=== PATIENT | male | born 1960 | race Asian ===

== ENCOUNTER 2019-09-06 13:20 | Outpatient (CLI) | payer OTHER, SELFPAY ==
--- NOTE | ~2019-09-06 | XR_ITS ---
EXAMINATION: XR shoulder LT min 2V DATE: 09/06/2019 13:45 INDICATION: Left shoulder pain. TECHNIQUE: 4 views of left shoulder were obtained. COMPARISON: None. FINDINGS: Bone alignment is normal. No fracture. Glenohumeral joint is normal. There is mild acromioc lavicular joint osteoarthritis. IMPRESSION: 1. Mild left acromioclavicular joint osteoarthritis. Reviewed, dictated and finalized at location A. INE MANAGER
== END 2019-09-06 13:21 | disposition home or self-care (01) ==
LOC: ANHIMG 13:29
PROVIDERS: PCP Emergency Medicine; Visit Provider Emergency Medicine
DX: M19.012 Primary osteoarthritis, left shoulder (principal)
CPT/HCPCS: 73030

== ENCOUNTER 2020-07-09 17:00 | Outpatient (RCR) | payer OTHER, SELFPAY ==
--- NOTE | 2020-06-14 18:05 | PTOPEVAL ---
PHYSICAL THERAPY EVALUATION AND PLAN OF CARE Thank you for referring Srinivasa Villarreal to [facility].? The patient is scheduled to be seen for therapy? 2x/week for 3 weeks. Please review, sign, date and return this plan of care [place]. I agree with and certify that the following plan of care is medically necessary. Referring Physician Date Attending Provider: Gemini Tafoya, SATURATOR OPERATOR-BC Evaluation Diagnosis low back pain, radiculopathy Subjective Information low back pain along the lower Query Text:As Reported By Patient/ spine and then symptoms that Family go down the left leg. This has been going on for several years and he did do therapy several years ago without significant change, but symptoms are worsening again. States he cannot sleep on the left side. He does sleep well on the right side. Sitting is the worst to illicit symptoms, but standing and walking with cause zingers. Self Report Pain Assessment Left Spine, Lumbar Reported Pain Level 5 Pain Description Burning,Sharp Radicular Pain Location left thigh Pain Frequency Chronic,Intermittent Lowest Pain Intensity 4 Greatest Pain Intensity 8 Pain Score Pain Score 5: Self Report Interventions Used Interventions Used By Clinicians Exercise Other Alleviating Interventions stretching Cervical and Lumbar ROM Lumbar ROM Lumbar Flexion (0-90) 50 Query Text:Active in Degrees Lumbar Flexion Active Mid [place] Query Text:Hands to: Lumbar Extension (0-40) 10 Query Text:Active in Degrees Lateral Rotation Right (0-45) 25 Query Text:Active in Degrees Lateral Rotation Left (0-45) 40 Query Text:Active in Degrees Lumbar Comments symptoms are lower lumbar spine with flexion and left rotation - symptoms improved after session Lower Extremity Muscle Strength Testing Hip Strength Right Hip Flexion Strength 5 Normal Hip Extension Strength 4 Good Hip Abduction Strength 4+ Good + Left Hip Flexion Strength 4+ Good + Hip Extension Strength 3+ Fair + Hip Abduction Strength 4- Good - Knee Strength Right Knee Flexion Strength 5 Normal Knee Extension Strength 5 Normal Left Knee Flexion Strength 4+ Good + Knee Extension Strength 4 Good Mus
--- NOTE | 2020-07-09 17:59 | PTOPEVAL ---
PHYSICAL THERAPY DISCHARGE NOTE Thank you for referring Srinivasa Villarreal to [facility].? Please review, sign, date and return this plan of care [place]. I agree with and certify that the following plan of care is medically necessary. Referring Physician Date Attending Provider: Gemini Tafoya, MOVIE ACTOR-BC Discharge Diagnosis low back pain, radiculopathy Subjective Information reports no significant change Query Text:As Reported By Patient/ in symptoms other than a very Family small amount. States that he feels ok just standing briefly, but if he stands for prolonged period or sits down he will feel significant symptoms in left lower back and radiculopathy to left lateral thigh just below gluteal fold Self Report Pain Assessment Left Spine, Lumbar Reported Pain Level 5 Pain Description Burning,Sharp Pain Frequency Chronic,Intermittent Pain Score Pain Score 5: Self Report Interventions Used Interventions Used By Clinicians Exercise Other Alleviating Interventions stretching Cervical and Lumbar ROM Lumbar ROM Lumbar Flexion (0-90) 60 Query Text:Active in Degrees Lumbar Flexion Active Mid [place] Query Text:Hands to: Lumbar Extension (0-40) 13 Query Text:Active in Degrees Lateral Rotation Right (0-45) 35 Query Text:Active in Degrees Lateral Rotation Left (0-45) 35 Query Text:Active in Degrees Lumbar Comments symptoms with flexion; reports feeling stiff after working and standing all day Lower Extremity Muscle Strength Testing Hip Strength Right Hip Flexion Strength 5 Normal Hip Extension Strength 5 Normal Hip Abduction Strength 5 Normal Left Hip Flexion Strength 5 Normal Hip Extension Strength 4+ Good + Hip Abduction Strength 5 Normal Knee Strength Right Knee Flexion Strength 5 Normal Knee Extension Strength 5 Normal Left Knee Flexion Strength 5 Normal Knee Extension Strength 5 Normal Muscle Length Testing Muscle Length Testing Piriformis w/Hip Flexion >90 Degrees (R) WFL,(L) WFL Left Hamstring Length -25 Query Text:(90 - 90 Position) Right Hamstring Length -25 Query Text:(90 - 90 Position) Posture Posture Supine Position Lumbar Spine Posture Increased Lordosis Pelvis Posture Neutral Additional Posture Comments discussed postu
== END 2020-08-28 14:21 | disposition home or self-care (01) ==
LOC: ANHPT 17:00
PROVIDERS: PCP Emergency Medicine; Visit Provider Nurse Practitioner Family
DX: M54.5 Low back pain (principal); M54.16 Radiculopathy, lumbar region
CPT/HCPCS: 97012; 97110; 97140; 97161

== ENCOUNTER 2020-10-06 15:42 | Emergency (ER) | payer OTHER, SELFPAY ==
--- NOTE | 2020-10-06 15:50 | ED.DIZZY ---
HPI - Dizziness General Chief Complaint: Dizziness Stated Complaint: DIZZINESS Time Seen by Provider: 10/06/20 15:56 Source: patient Mode of arrival: ambulatory Limitations: no limitations History of Present Illness HPI Narrative: Srinivasa Villarreal is a 59 yo male with a PMH of prior benign positional vertigo, comes to [facility] with complaints of feeling capsular in his ears and dizziness that started about 3 to 4 days ago today. He has been treated for middle ear issue and dizziness in the past with meclizine Related Data Home Medications Medication Instructions Recorded Confirmed No Home Medications 10/06/20 10/06/20 Allergies Allergy/AdvReac Type Severity Reaction Status Date / Time Penicillins Allergy Unknown SISTER HAD Verified 10/06/20 15:50 A REACTION Review of Systems Review of Systems: Narrative: CONSTITUTIONAL: Denies fever, chills, sweats. EYES: Denies visual changes, redness, discharge. ENT: Denies rhinorrhea, congestion, sore throat, otalgia. CARDIOVASCULAR: Denies chest pain, palpitations, edema. RESPIRATORY: Denies dyspnea, wheezing, cough GASTROINTESTINAL: Denies abdominal pain, nausea, vomiting, diarrhea. GENITOURINARY: Denies dysuria, hematuria, abnormal discharge SKIN: Denies rash or itching. NEUROLOGIC: Denies numbness, or focal weakness. Has dizziness PSYCHIATRIC: Denies anxiety or depression. [facility] Past Medical History Medical History Benign positional vertigo Thalassemia Family History Family History Other Hypertension Social History Social History (Updated 10/06/20 @ 16:15 by Mary Ann Mims CNP) Smoking status: Never smoker Substance use: never Comments At time of signature, I agree with nursing past medical, surgical, social and family history. There is no relevant family history pertinent to the presenting complaint. Exam Narrative: Exam Narrative: GENERAL: This is a well-nourished, well-developed patient, in mild distress. HEAD: normocephalic, atraumatic. EYES: [place] Sclera clear/white. Vision is grossly intact. EARS: External ears normal, auditory canals clear and without drainage, TMs normal without perforation. Hearing grossly intact. NOSE: External nose normal without nasal discharge, nares without redness, no rhinorrhea. THROAT: Mucous membranes moist, NECK: Neck supple, CARDIOVASCULAR: Regular rate and rhythm without murmurs, gallops, or rubs. RESPIRATORY: Clear to auscultation. Breath sounds equal bilaterally. No wheezes, rales, or rhonchi. GASTROINTESTINAL: Abdomen soft, SKIN: warm, intact with no suspicious lesions or rash, good texture and turgor. NEURO: awake, alert, and oriented to person, place and time. There were no obvious focal neurologic abnormalities. Steady gait.Crania nerves grossly intact EXTREMITIES: Normal range of motion. BACK: Nontender without deformity Course Course Emergency Course: Came to [facility] with dizziness started today, states feels has water in ears sometimes when he kneels down to pray EKG done, vital signs done, discussed with patient will start on Flonase Zyrtec and meclizine. Symptoms continue he should go to the PCP and get blood work done. Discussed results of EKG Vital Signs Vital signs: Vital Signs Temperature 98.8 F 10/06/20 15:57 Pulse Rate 76 10/06/20 15:57 Respiratory Rate 16 10/06/20 15:57 Blood Pressure 98/80 L 10/06/20 15:57 Pulse Oximetry 100 10/06/20 15:57 Temperature 98.8 F 10/06/20 15:57 Pulse Rate 76 10/06/20 16:21 Respiratory Rate 16 10/06/20 15:57 Blood Pressure 131/78 10/06/20 16:21 Pulse Oximetry 100 10/06/20 15:57 Procedures Other Procedure Procedure 1: Other Procedure: EKG rate is 75 no QT prolongation no axis deviation normal sinus rhythm and peaked T waves in V3 and V4 MDM - Dizziness Differential Diagnosis Differen
[2020-10-06 15:57] VITALS: BP 98/80; PULSE 76; RESP 16; TEMP 37.1; O2SAT 100
--- NOTE | 2020-10-06 16:06 | ECG_ITS ---
Measurements Intervals [place] Rate: 75 P: 77 MS: 126 QRS: 66 QRSD: 97 T: 53 QT: 382 QTc: 428 Interpretive Statements SINUS RHYTHM INCOMPLETE RIGHT BUNDLE BRANCH BLOCK BORDERLINE ECG Electronically Signed On 10-07-2020 16:24:59 CDT by Kyle Denny D.O.
[2020-10-06 16:19] VITALS: BP 125/72; PULSE 76
[2020-10-06 16:20] VITALS: BP 116/72; PULSE 87
[2020-10-06 16:21] VITALS: BP 131/78; PULSE 76
== END 2020-10-06 16:32 | disposition home or self-care (01) ==
PROVIDERS: Emergency Provider Nurse Practitioner; PCP Emergency Medicine
DX: H81.10 Benign paroxysmal vertigo, unspecified ear (principal)
CPT/HCPCS: 93005; 99213; G0463

== ENCOUNTER 2020-11-06 14:42 | Outpatient (CLI) | payer OTHER, SELFPAY | END 2020-11-06 14:43 | disposition home or self-care (01) | LOC: ANHAUDIO 14:43 | PROVIDERS: PCP Emergency Medicine; Visit Provider Emergency Medicine | DX: H90.3 Sensorineural hearing loss, bilateral (principal); R42 Dizziness and giddiness | CPT/HCPCS: 92557; 92567 ==

== ENCOUNTER 2021-10-09 16:38 | Outpatient (CLI) | payer OTHER, SELFPAY ==
--- NOTE | ~2021-10-09 | XR_ITS ---
EXAMINATION: XR lumbar spine 2-3V DATE: 10/09/2021 17:03 INDICATION: Other spondylosis, lumbar region. TECHNIQUE: 3 views of lumbar spine were obtained. COMPARISON: Lumbar spine radiographs 01/27/2017, MRI 04/22/2018 FINDINGS: Bone alignment is normal. Vertebral body heights are normal. Intervertebral disc heights ar e normal. There is multilevel mild facet joint osteoarthritis. There is severe right facet joint oste oarthritis at L5-S1. IMPRESSION: 1. Lumbar facet joint osteoarthritis. Reviewed, dictated and finalized at location A.
== END 2021-10-09 16:39 | disposition home or self-care (01) ==
LOC: ANHIMG 16:46
PROVIDERS: PCP Emergency Medicine; Visit Provider Emergency Medicine
DX: M47.896 Other spondylosis, lumbar region (principal); M51.36 Other intervertebral disc degeneration, lumbar region
CPT/HCPCS: 72100

== ENCOUNTER → 2022-03-20 08:03 | Outpatient (CLI) | payer OTHER, SELFPAY ==
--- NOTE | ~2022-03-20 | US_ITS ---
EXAMINATION: US venous doppler [facility] DATE: 03/20/2022 08:55 INDICATION: Left lower limb pain TECHNIQUE: Garvin scale images without and with compression and Doppler images of the left lower extrem ity veins were obtained. COMPARISON: None FINDINGS: The left common femoral vein, profunda femoral vein, femoral vein, popliteal vein, peroneal trunk, posterior tibial veins, and greater saphenous vein are patent. IMPRESSION: 1. Patent left lower extremity veins. No evidence of deep venous thrombosis. Reviewed, dictated and finalized at location B.
--- NOTE | ~2022-03-20 | US_ITS ---
EXAMINATION: US scrotum doppler DATE: 03/20/2022 08:55 INDICATION: Left testicular pain since epididymal cyst removal TECHNIQUE: Testicular sonogram utilizing grayscale and Doppler COMPARISON: 05/03/2014 FINDINGS: The right testis measures 4.2 x 1.9 x 3.3 cm. The left testis measures 4.4 x 1.7 x 3.5 cm a nd contains a 3 mm cyst. There is normal vascular flow to both testes. The right epididymis contains a 7 mm cyst. The left epididymis contains a 7 mm cyst. There is a small left hydrocele. IMPRESSION: 1. Small bilateral epididymal cysts. Reviewed, dictated and finalized at location B.
== END ==
LOC: EXPGOSH 08:06 → EXPGOSHRAD 08:52
PROVIDERS: PCP Emergency Medicine; Visit Provider Emergency Medicine
DX: R52 Pain, unspecified (principal); N50.3 Cyst of epididymis
CPT/HCPCS: 76870; 93971; 93976

== ENCOUNTER 2022-05-14 10:16 | Outpatient (CLI) | payer OTHER, SELFPAY ==
--- NOTE | 2022-05-14 11:15 | NEURO_ITS ---
Impression: # Complains of pain in left lower extremity. # Normal nerve conduction study. # Normal needle/EMG exam. # Clinical correlation recommended. Motor Nerve Conduction Lower Extremities Peroneal Nerve Conduction Velocity (m/sec) Terminal Latency (msec) Response Voltage(mV) Popliteal space-Ankle Ankle Extensor Dig Brevis Popliteal space Ankle Right Left 40 5.1 2 2 Tibial Nerve Conduction Velocity (m/sec) Terminal Latency (msec) Response Voltage(mV) Popliteal space-Ankle Ankle-Extensor Dig Brevis Popliteal space Ankle Right Left 45 4.8 4 5 F-waves Peroneal Nerve (ms) Tibial Nerve (ms) Right Left 59.1 58.3 Sensory Nerve Conduction Lower Extremities Sural Nerve Stimulation Terminal Latency (msec) Ankle Response Voltage (uV) Ankle Response Velocity (m/sec) Right Left 3.9 23 41 Superficial Peroneal Nerve Stimulation Terminal Latency (msec) Ankle Response Voltage (uV) Ankle Response Velocity (m/sec) Right Left 3.2 40 50 Left Right Muscles Examined Fibrillation Fasciculation Scarcity Voltage Duration Left Right Left Right Left Right Left Right Left Right X Ant Tibialis X Gastroc X Fibularis Long X Flex Dig Long X Ext Dig Brev Abd Hallucis Quadriceps Paraspinals MTDD
== END 2022-05-14 10:17 | disposition home or self-care (01) ==
LOC: ANHNEURO 10:17
PROVIDERS: PCP Emergency Medicine; Visit Provider Emergency Medicine
DX: G57.12 Meralgia paresthetica, left lower limb (principal)
CPT/HCPCS: 95886; 95908

== ENCOUNTER 2023-06-19 08:39 | Outpatient (CLI) | payer OTHER, SELFPAY ==
--- NOTE | 2023-06-19 08:42 | EST_ITS ---
Patient Info Name: Srinivasa Villarreal Age: 62 years : 1960 Gender: Male Ht: 71 in Wt: 145 lbs BSA: 1.81 m2 HR: 73 bpm BP: 147 / 84 mmHg Heart Rhythm: Sinus Rhythm Exam Date: 06/19/2023 8:49 AM Exam Location: Echo Lab Patient Status: Outpatient Admit Date: 06/19/2023 Staff Ordering Physician: Kyle Euceda DO Data Network Architect: Telma Brito RDCS Attending Provider: DR. EUCEDA Referring Physician: Eduin LOPEZ; Exercise Technologist: Telma Brito RDCS Exercise Physician: Kyle Euceda DO Exam Type: CA stress echo Study Info Indications R07.9 - Chest pain, unspecified Treadmill exercise stress echocardiogram is performed. Summary 1. 1. Negative Logan exercise stress test for ischemic ST changes by ECG criteria. 2. 2. Good functional capacity, achieving 10 METs of workload. 3. 3. Baseline hypertension. 4. 4. Appropriate HR response to exercise. 5. 5. Appropriate HR recovery at 1 minute post exercise. 6. 6. Negative stress echocardiogram for ischemia by wall motion analysis. 7. 7. Patient informed of the above results. Stress Echo Findings Left Ventricle Appropriate increase in LV endocardial thickening with systole. Appropriate augmentation of contractility with systole. No wall motion abnormality. Left Ventricle Normal LV systolic function, no wall motion abnormality. Protocol: Logan Stress ECG Details Stage: REST Duration (min): 0 min : 45 sec Speed (mph): 0.0 Grade (%): 0 HR (bpm): 72 SBP (mmHg): 147 DBP (mmHg): 84 METS: --- Stage: REST Duration (min): 6 min : 57 sec Speed (mph): 0.0 Grade (%): 0 HR (bpm): 74 SBP (mmHg): 147 DBP (mmHg): 84 METS: --- Stage: STAGE 1 Duration (min): 1 min : 0 sec Speed (mph): 1.7 Grade (%): 10 HR (bpm): 101 SBP (mmHg): 147 DBP (mmHg): 84 METS: --- Stage: STAGE 1 Duration (min): 2 min : 0 sec Speed (mph): 1.7 Grade (%): 10 HR (bpm): 114 SBP (mmHg): 147 DBP (mmHg): 84 METS: --- Stage: STAGE 1 Duration (min): 3 min : 0 sec Speed (mph): 1.7 Grade (%): 10 HR (bpm): 115 SBP (mmHg): 181 DBP (mmHg): 79 METS: --- Stage: STAGE 2 Duration (min): 1 min : 0 sec Speed (mph): 2.5 Grade (%): 12 HR (bpm): 124 SBP (mmHg): 181 DBP (mmHg): 79 METS: --- Stage: STAGE 2 Duration (min): 2 min : 0 sec Speed (mph): 2.5 Grade (%): 12 HR (bpm): 125 SBP (mmHg): 182 DBP (mmHg): 75 METS: --- Stage: STAGE 2 Duration (min): 3 min : 0 sec Speed (mph): 2.5 Grade (%): 12 HR (bpm): 124 SBP (mmHg): 182 DBP (mmHg): 75 METS: --- Stage: STAGE 3 Duration (min): 1 min : 0 sec Speed (mph): 3.4 Grade (%): 14 HR (bpm): 140 SBP (mmHg): 188 DBP (mmHg): 80 METS: --- Stage: STAGE 3 Duration (min): 2 min : 0 sec Speed (mph): 3.4 Grade (%): 14 HR (bpm): 143 SBP (mmHg): 188 DBP (mmHg): 80 METS: --- Stage: STAGE 3 Duration (min): 2 min : 2 sec Speed (mph): 0.0 Grade (%): 0 HR (bpm): 144 SBP (mmHg): 188 DBP (mmHg): 80 METS:
== END 2023-06-19 08:40 | disposition home or self-care (01) ==
LOC: ANHCARD 08:41
PROVIDERS: PCP Emergency Medicine; Visit Provider Internal Medicine Cardiovascular Disease
DX: R07.9 Chest pain, unspecified (principal)
CPT/HCPCS: 93351

== ENCOUNTER 2023-07-15 15:30 | Outpatient (RCR) | payer OTHER, SELFPAY ==
--- NOTE | 2023-06-17 16:44 | OPREHPOC ---
Outpatient Therapy Plan of Care This is a Multidisciplinary Plan of Care that may contain components documented by all disciplines (PT, OT, and ST.) PT Problem 1 PT Problem #1 Knowledge Deficit PT Goal 1 Goal Pt to be IND with issued HEP Target Visit 4 PT Problem 2 PT Problem #2 Pain PT Goal 1 Goal Pt to report L hip pain no greater than 3/10 in the last week Target Visit 4 PT Goal 2 Goal Pt to report 75% improvement in overall symptoms Target Visit 4 PT Problem 3 PT Problem #3 Impaired Strength PT Goal 1 Goal Pt to report equal sensation with resisted hamstring curl Target Visit 4 PT Problem 4 PT Problem #4 Pain PT Goal 1 Goal Pt to be able to sit for 30 mins without an increase in pain Target Visit 4
--- NOTE | 2023-06-17 16:44 | PTOPEVAL1 ---
Assessment and note entered by Chuyita Chaidez, PT, DPT Evaluation Information Assessment Status Evaluation Diagnosis L side sciatic pain Onset chronic Subjective Information Pt states he has L sided hip pain that goes down to his knee. He reports his pain is worse when he is sleeping or sitting. He states when he is standing and walking he has little to no pain. He states he has had this pain for 20 years and has gone through multiple rounds of therapy and multiple different providers to try to diagnosis his pain. Pt initially reports his pain as a 11/10 . He states he has noticed some muscle atrophy in his L leg compared to the R. He states he stands most of the day. Reported Pain Level Pain Score 7: Self Report Assessment PT Clinical Summary Pt presents to therapy today for his initial evaluation with a L sided sciatica. Today he demonstrates equal LE ROM and strength ravi but reports altered sensation with some resisted motions on the L. He notes tenderness to palpation at his L ischial tuberosity and his pain increased incrementally with prolonged sitting. Skilled therapy services are indicated to treat a mechanics cause of his pain, to improve pain reports, and to return to PLOF. Plan of Care Interventions Electrical Stimulation,Gait Training,Hot Pack/Cold Pack,Manual Therapy,Neuro Re-education PT Services Indicated Yes Treatment Frequency and 1x/wk for 4 visits Duration These treatments will address the objective and functional deficits as defined above. The patient will be advanced safely and appropriately in order for the patient to progress towards his/her prior level of function. Additional exercises will be introduced and as well as a comprehensive home exercise program upon discharge, if needed, ?to ensure carryover of functional gains achieved in the clinic. This treatment plan has been reviewed and agreement upon by the patient.
--- NOTE | 2023-07-15 16:14 | PTOPDC ---
Assessment and note entered by Chuyita Chaidez, PT, DPT Evaluation Information Assessment Status discharge Diagnosis L side sciatic pain Onset chronic Subjective Information Pt states his pain in about the same as when he started therapy, he states the stretching helps a little bit but it is only momentary. Pt states he continues to have no pain in standing, but increases as soon as he sits down. Pt states his pain increases to a 6-7/10 if he is sitting longer than 30 mins, he states this still feels like a deep bruise. Reported Pain Level Pain Score 4: Self Report Assessment PT Clinical Summary Pt presents to therapy today for his progress report following 5 visits of skilled therapy. Today he demonstrates neutral LE alignment in supine. He reports no measurable improvements in his pain with day to day activities. He reports adjusting his posture does help to ease his pain but only temporarily. He has made no progress towards his therapy goals and would like to be discharged at this time to return to his orthopedic doctor. He will be discharged per his request.
== END 2023-07-16 08:12 | disposition home or self-care (01) ==
LOC: ANHGOSHPT 15:30
PROVIDERS: PCP Emergency Medicine; Visit Provider Emergency Medicine
DX: M54.42 Lumbago with sciatica, left side (principal)
CPT/HCPCS: 97110; 97140; 97161; 97530

== ENCOUNTER 2023-09-04 08:51 | Outpatient (CLI) | payer OTHER, SELFPAY ==
--- NOTE | ~2023-09-04 | MR_ITS ---
MRI of the lumbar spine Clinical History: Back pain, left sciatica Technique: Axial T2-weighted images, and sagittal T1-weighted, T2-weighted, and T2 fat-sat images wer e acquired. COMPARISON: 04/22/2018 Findings: There is no fracture or subluxation of the lumbar spine. Vertebral bodies maintain normal h eight and alignment. No bone marrow signal abnormality seen. At L1-L2, there is no significant disc bulge or herniation. There is mild facet arthropathy. No centr al canal stenosis or neural foraminal narrowing. At L2-L3, there is no significant disc bulge or herniation. There is moderate facet arthropathy. No c entral canal stenosis or neural foraminal narrowing. At L3-L4, there is mild disc bulge with annular fissure. There is moderate facet arthropathy. No cent ral canal stenosis or definite neural foraminal narrowing. At L4-L5, there is mild disc bulge and moderate facet arthropathy. No central canal stenosis. Neural foramina are preserved. At L5-S1, there is minimal disc bulge with advanced facet arthropathy. No central canal stenosis or n eural foraminal narrowing. Paravertebral soft tissues are unremarkable. Impression: Mild degenerative spondylosis, as above. Reviewed, dictated and finalized at location . E GATE ASSEMBLER Impression: Mild degenerative spondylosis, as above.
== END 2023-09-04 08:52 | disposition home or self-care (01) ==
PROVIDERS: PCP Emergency Medicine; Visit Provider Emergency Medicine
DX: M54.42 Lumbago with sciatica, left side (principal); M47.896 Other spondylosis, lumbar region
CPT/HCPCS: 72148

== ENCOUNTER 2023-09-20 18:21 | Emergency (ER) | payer OTHER, SELFPAY ==
--- NOTE | ~2023-09-20 | XR_ITS ---
EXAMINATION: XR chest 2V DATE: 09/20/2023 19:40 INDICATION: Cough. TECHNIQUE: Frontal and lateral views of the chest were obtained. COMPARISON: Chest 2 views 10/04/2016 FINDINGS: There is no pneumonia, pleural effusion, or pneumothorax. The heart size is normal. IMPRESSION: 1. No acute cardiopulmonary disease. Reviewed, dictated and finalized at location E.
[2023-09-20 18:22] VITALS: BP 138/71; PULSE 96; RESP 16; TEMP 36.6; O2SAT 96
[2023-09-20 19:14] LABS: Influenza A QL RT-PCR Positive (Negative); Influenza B QL RT-PCR Negative (Negative); SARS-CoV-2 RNA PCR Negative (Negative)
[2023-09-20 19:33] VITALS: O2SAT 96
--- NOTE | 2023-09-20 19:37 | PC.NURSE ---
Patient taken to xray via w/c at this time.
[2023-09-20 19:54] VITALS: BP 136/85; PULSE 82; RESP 17; TEMP 36.8; O2SAT 98
--- NOTE | 2023-09-20 19:56 | ED.GENADULT ---
HPI - General Adult General Chief complaint: Upper Respiratory Infection Stated complaint: URI Time Seen by Provider: 09/20/23 19:12 History of Present Illness HPI narrative: Patient is 62-year-old gentleman who presents emergency department with chief complaint of body aches fever and generalized malaise. Patient reports he has had symptoms for about a week and reports he seen his primary care provider who started him on Zithromax and steroid. Patient states that he has continued to have fevers sometimes up to 102 the patient states that he has been taking Tylenol and ibuprofen without relief. Related Data Allergies Allergy/AdvReac Type Severity Reaction Status Date / Time Penicillins Allergy Unknown SISTER HAD Verified 09/20/23 19:32 A REACTION Review of Systems Review of Systems: A 10 system review of systems was completed on the patient and is negative except for what is stated in the HPI. Nursing and ancillary documentation was reviewed. [facility] Past Medical History Medical History Benign positional vertigo Thalassemia Family History Family History Other Hypertension Social History Social History Smoking status: Never smoker Substance use: never Exam Narrative: GENERAL: Well-appearing, well-nourished, and in no acute distress. HEAD: Normocephalic, atraumatic. EYES: PERRLA and EOMI. ENT: Nares clear, no rhinorrhea or epistaxis. Mucous membranes moist. NECK: Supple. CHEST: Clear to auscultation. No respiratory distress. HEART: Regular rate and rhythm. No murmur heard. Normal peripheral pulses. ABDOMEN: Soft, nontender, nondistended, normal active bowel sounds. EXTREMITIES: Normal range of motion. No edema. SKIN: Warm, dry, no rash. NEURO: No focal deficits. Alert and oriented x3. PSYCH: Normal mood and affect. Course Vital Signs Vital signs: Vital Signs Temperature 36.6 C 09/20/23 18:22 Pulse Rate 96 09/20/23 18:22 Respiratory Rate 16 09/20/23 18:22 Blood Pressure 138/71 09/20/23 18:22 Pulse Oximetry 96 09/20/23 18:22 Oxygen Delivery Room Air 09/20/23 18:22 Temperature 36.8 C 09/20/23 19:54 Pulse Rate 82 09/20/23 19:54 Respiratory Rate 17 09/20/23 19:54 Blood Pressure 136/85 09/20/23 19:54 Pulse Oximetry 98 09/20/23 19:54 Oxygen Delivery Room Air 09/20/23 19:33 Medical Decision Making MDM Narrative Medical decision making narrative: Differential diagnosis includes RSV, influenza, COVID, pneumonia, viral illness, upper respiratory infection Viral swab was obtained which showed positive for influenza A Chest x-ray showed no focal infiltrate Unfortunate the patient is a week status post symptoms onset and is not indicated for Tamiflu at this point. The patient will be discharged home instructed symptomatic care Vital Signs Vital Signs: Vital Signs Temperature 36.6 C 09/20/23 18:22 Pulse Rate 96 09/20/23 18:22 Respiratory Rate 16 09/20/23 18:22 Blood Pressure 138/71 09/20/23 18:22 Pulse Oximetry 96 09/20/23 18:22 Oxygen Delivery Room Air 09/20/23 18:22 Temperature 36.8 C 09/20/23 19:54 Pulse Rate 82 09/20/23 19:54 Respiratory Rate 17 09/20/23 19:54 Blood Pressure 136/85 09/20/23 19:54 Pulse Oximetry 98 09/20/23 19:54 Oxygen Delivery Room Air 09/20/23 19:33 Lab Data Labs: Lab Results 09/20/23 Range/Units 18:27 Influenza A (RT-PCR) Positive A (Negative) Influenza B (RT-PCR) Negative (Negative) SARS-CoV-2 RNA (RT-PCR) Negative (Negative) Discharge Plan Discharge Clinical Impression: Influenza A, Upper respiratory infection Patient Disposition: Home, Self-Care Condition: Stable Instructions: Antibiotic Form, Influenza (ED), Upper Respiratory In
== END 2023-09-20 20:08 | disposition home or self-care (01) ==
PROVIDERS: Physician Assistant; Emergency Provider Emergency Medicine; PCP Emergency Medicine
DX: J10.1 Influenza due to other identified influenza virus with other respiratory manifestations (principal); Z20.822 Contact with and (suspected) exposure to COVID-19
CPT/HCPCS: 71046; 87636; 99283

== ENCOUNTER 2024-03-11 14:50 | Outpatient (CLI) | payer OTHER, SELFPAY ==
--- NOTE | ~2024-03-11 | US_ITS ---
EXAMINATION: US scrotum doppler DATE: 03/11/2024 15:21 INDICATION: Left testicular pain TECHNIQUE: Testicular sonogram utilizing grayscale and Doppler COMPARISON: 03/20/2022 FINDINGS: The right testis measures 4.5 x 2.2 x 2.8 cm. The left testis measures 4.6 x 1.8 x 3.0 cm. There is m ild tubular ectasia of the left rete testis. Otherwise symmetric normal grayscale appearance to both testes. There is normal vascular flow to both testes. 8 mm anechoic cyst at the head of the right epi didymis. The right epididymis is otherwise normal with normal vascular flow. The left epididymis is n ormal with normal vascular flow. There is no hydrocele. Mild left varicocele with vessels measuring u p to 2.8 mm which augment with Valsalva. There is mobile fat within a small left inguinal hernia. IMPRESSION: 1. Small fat-containing left inguinal hernia. 2. Mild left varicocele and mild tubular ectasia of the left rete testis. Reviewed, dictated and finalized at location A.
== END 2024-03-11 14:51 | disposition home or self-care (01) ==
LOC: ANHIMG 14:52
PROVIDERS: PCP Emergency Medicine; Visit Provider Emergency Medicine
DX: K40.90 Unilateral inguinal hernia, without obstruction or gangrene, not specified as recurrent (principal); I86.1 Scrotal varices; N50.89 Other specified disorders of the male genital organs; N50.812 Left testicular pain
CPT/HCPCS: 76870; 93976

== ENCOUNTER 2024-04-26 08:43 | Outpatient (CLI) | payer OTHER, SELFPAY ==
[2024-05-18 12:54] VITALS: BMI 19.5
--- NOTE | 2024-05-18 12:54 | WPDHOMESLEEP ---
Sleep Study - Home Unattended Date of Study: 04/26/24 Ordering Provider: Yoseph Newsome MD Interpreting Provider: Jhoana Hardin DO Home Sleep Study Type: Watch PAT Height: 1.8 m Weight: 63.503 kg Body Mass Index: 19.5 Neck Circumference (inches): 14.5 Dunlap: 15 Reason for Sleep Study Snoring, daytime fatigue Sleep History The patient is a 63-year-old male that had a sleep study ordered by his primary care physician for evaluation of sleep apnea. The patient did not complete the sleep history questionnaire. [facility] Past Medical History Medical History Benign positional vertigo Thalassemia Surgical History Surgical History History of removal of cyst left testicle Family History Family History Other Cancer Social History Social History Smoking status: Never smoker Alcohol intake: never Substance use: never Current Housing: Decline to Answer Concerned About Future Housing: Decline to Answer Difficulty Paying Gas/Electric Bills: Decline to Answer Difficulty Paying for Meds: Decline to Answer Currently Unemployed: Decline to Answer Education: Decline to Answer Difficulty w/ Childcare or Family Care: Decline to Answer Medications Home Medications Medication Instructions Recorded Confirmed Type No Home Medications 03/17/24 03/17/24 History Sleep Procedure The sleep study was completed using WatchPAT a technically adequate device with seven channels: peripheral arterial tone, actigraphy, body position, snore, respiratory movement, pulse oximetry, sleep staging, and heart rate. Prior to using the device, the patient received verbal and written instructions for its application and was provided with the help desk phone number for additional telephonic instruction with 24-hour availability of qualified personnel to answer questions. The study was scored using CMS guidelines. Sleep Architecture The total recording time is 5 hrs, 43 min. The total sleep time is 4 hrs, 25 min. Sleep latency is 6 minutes. REM latency is minutes. The patient had 10 episodes of waking. Sleep architecture shows % deep sleep, % light sleep, and (as % Total Sleep Time) showed NREM (Light %; Deep %), and a % stage REM. The patient spent 35.6% of total sleep time in the supine position. Sleep efficiency was 77.26. Respiratory Analysis The overall AHI (pAHI 4%:) is 4.4. The central AHI is 2.2. The AHI was N/A in NREM and N/A in REM sleep. The AHI was N/A in Supine and 3.3 in Non-supine sleep. Percent of Presley Liriano respirations is 0.0. Oximetry Data The oxygen desaturation index (LEIDY 4%:) is 4.4. The mean saturation is 97%, and the lowest saturation is 67%. Time spent with saturation < 88% is 0.1 minutes. Snoring Profile Snoring average intensity is 41 dB. The patient snored above 45 decibels for 20.2 minutes, 7.6% of sleep time. Cardiac Profile The average pulse rate is 65 beats per minutes. The lowest pulse rate is 40 bpm. The highest pulse rate reported is 120 bpm. Suspected Afib total duration is 0:39:47, (h:m:sec). The longest Afibevent duration is 0:06:50. Premature beats occur 0.2 per minute. Assessment and Plan Assessment and Plan (1) Snoring: Code(s): R06.83 - Snoring Status: Acute Assessment and Plan: The patient had an overall AHI 4.4 with desaturation down to 67%. This is not consistent with sleep disordered breathing. There was a significant amount of electrical interference during this study so the data was not as detailed as it normally is. The patient was noted to have nearly 40 minutes of suspected atrial fibrillation during the study. If the patient does not have a history of a cardiac arrhythmia, further evaluation is warranted. Due to the technical difficulty that was experienced during the study, the patient may benefit from an in lab sleep study if there is still clinical suspicion for sleep apnea. Data The data obtained during this sleep study is adequate for interpretation. Certification This sleep study has been reviewed by a board certified sleep medicine physician.
== END 2024-04-27 14:40 | disposition home or self-care (01) ==
LOC: ANHCSM 08:45
PROVIDERS: PCP Emergency Medicine; Visit Provider Emergency Medicine
DX: R06.83 Snoring (principal); G47.33 Obstructive sleep apnea (adult) (pediatric)
CPT/HCPCS: 95800

== ENCOUNTER 2025-05-23 07:57 | Outpatient (CLI) | payer OTHER, SELFPAY ==
--- OUTSIDE RECORDS SUMMARY | 2025-05-23 08:05 | XMS_ITS | Clinical Summary ---
Author Organization [facility] Address [address] [place] [id number] Care Team Providers Care Senior Operator Name Role Phone Yoseph Newsome MD Primary Care Provider Allergies Active Allergy Reactions Criticality Noted Date Comments Penicillin Rash High 12/24/2015 Penicillin G Other (See comments) High 04/22/2012 Penicillins Other (See comments),Rash,Unknown Medium 04/22/2012 PT STATES SISTER HAD RASH UNKNOWN IF HE HAS ISSUES Medications methylPREDNISol one (Medrol, Luis A,) 4 mg DosepackIndicat ions:Anti-infla mmatory Take 1 tablet (4 mg total) by mouth daily Take as directed on package 1 packet 06/12/2022 Active Active Problems Problem Noted Date Diagnosed Date Ischiogluteal bursitis of left side 06/12/2022 Right lateral epicondylitis 06/12/2022 Trochanteric bursitis of left hip 06/12/2022 Surgical History Surgery Date Site/Laterality Comments TESTICLAR CYST EXCISION Medical History Medical History Date Comments No known health problems Family History Medical History Relation Name Comments Diabetes Mother Relation Name Status Comments Mother Social History Tobacco Use Types Packs/Day Years Used Date Smoking Tobacco: Former Smokeless Tobacco: Never Tobacco Cessation:Counseling Given: Not Answered AUDIT-C Answer Date Recorded Q1: How often do you have a drink containing alc ohol? Patient declined 12/04/2020 Q2: How many drinks containi ng alcohol do you have on a typical day when you are drinking? Patient declined 12/04/2020 Q3: How often do you have si x or more drinks on one occasion? 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 Gender Identity Not on file Sexual Orientation Not on file Last Filed Vital Signs Vital Sign Reading Time Taken Comments Blood Pressure 112/80 03/02/2013 9:00 AM CDT Pulse 65 03/02/2013 9:00 AM CDT Temperature 36.7 C (98.1 F) 03/02/2013 9:00 AM CDT Respiratory Rate - - Oxygen Saturation 98% 03/02/2013 9:00 AM CDT Inhaled Oxygen Concentration - - Weight 64.4 kg (142 lb) 06/12/2022 10:26 AM GRAVITY METER OBSERVER Height 180.3 cm (5' 11) 06/12/2022 10:26 AM GRAVITY METER OBSERVER Body Mass Index 19.8 06/12/2022 10:26 AM GRAVITY METER OBSERVER Plan of Treatment Health Maintenance Due Date Last Done Comments Colon Cancer Screening-Colonoscopy 1961 Depression Screening 1961 Hepatitis C Screening 1961 Prostate Cancer Screening-PSA 1961 DTaP/Tdap/Td Vaccine (1 - Tdap) 1972 Hepatitis B Screening 11/08/1979 Regular Well Visit/Exam 18-64 11/08/1979 Zoster Vaccine (1 of 2) 11/08/2011 Influenza Vaccine (#1) 2025 Pneumococcal vaccine <65 Aged Out No longer eligible based on patient's age to complete this topic Insurance [facility] [id number] [place] [address] Care Teams Senior Operator Relationship Specialty Start Date End Date Yoseph Newsome MD [facility] [place] [address] PCP - General Family Medicine 10/24/20
--- OUTSIDE RECORDS SUMMARY | 2025-05-23 08:05 | XMS_ITS | Clinical Summary ---
Author Organization [facility] Address [address] [place] [address] Phone Care Team Providers Care Human Services Manager Name Role Phone Yoseph Newsome Primary Care Provider [phone] Agustin Tsai MD Unavailable [phone] Allergies Active Allergy Reactions Criticality Noted Date Comments Penicillins Other (see Comments),Rash,Unknown High 04/22/2012 Other reaction(s): Other, Other (See comments), Unknown PT STATES SISTER HAD RASH UNKNOWN IF HE HAS ISSUES PT STATES SISTER HAD RASH UNKNOWN IF HE HAS ISSUES PT STATES SISTER HAD RASH UNKNOWN IF HE HAS ISSUES Medications sulindac (CLINORIL) 150 MG Tablet Take 1 Tablet by mouth 2 times daily. 60 Tablet 3 04/15/2024 Active Tadalafil 5 MG Tablet Take 1 Tablet by mouth as needed for Erectile Dysfunction. 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 Gender Identity Not on file Sexual Orientation Not on file Last Filed Vital Signs Vital Sign Reading Time Taken Comments Blood Pressure 144/82 04/15/2024 9:10 AM CDT Pulse 79 04/15/2024 9:10 AM CDT Temperature - - Respiratory Rate 20 04/15/2024 9:10 AM CDT Oxygen Saturation 97% 04/15/2024 9:10 AM CDT Inhaled Oxygen Concentration - - Weight 63.5 kg (140 lb) 04/15/2024 9:10 AM CDT Height 180.3 cm (5' 11) 04/15/2024 9:10 AM CDT Body Mass Index 19.53 04/15/2024 9:10 AM CDT Plan of Treatment Health Maintenance Due Date Last Done Comments Hepatitis C Virus (HCV) Screening 1961 TdaP Immunization 1961 Cologuard 2006 Colonoscopy 2006 Colorectal Cancer Screening 2006 Immunochemical Fecal Occult Blood 2006 Pneumococcal Immunization (5 0+ years) (1 of 1 - PCV) 11/08/2011 Zoster Immunization (1 of 2) 11/08/2011 PSA Discussion 2016 Influenza Immunization (#1) 2025 SARS-COV-2 Immunization ( - 2024- season) 2025 Respiratory Syncytial Virus (RSV) Immunization (Adult) (1 - 1-dose 75+ series) 2036 Hepatitis B Immunization Aged Out No longer eligible based on patient's age to complete this topic Human Papillomavirus (HPV) Immunization Aged Out No longer eligible b ased on patient's age to complete this topic Meningococcal Immunization (ACWY) Aged Out No longer eligible based on patient's age to complete this topic Rotavirus Immunization Aged Out No lo nger eligible based on patient's age to complete this topic Insurance MEDICAID [employer] Care Teams Human Services Manager Relationship Specialty Start Date End Date Yoseph Newsome [address] [place] [address] PCP - General Family Medicine 04/14/24 Agustin Tsai MD [address] [facility] [address] [place] [address] Consulting Physician Urology 04/15/24
--- OUTSIDE RECORDS SUMMARY | 2025-05-23 08:05 | XMS_ITS | Clinical Summary ---
Author Organization [facility] Address [address] [place] [address] Care Team Providers Care Concrete Batching Plant Operator Name Role Phone Yoseph Newsome MD Primary Care Provider [phone] [facility],non[facility] Affiliates and Associated Physician Practices is amultiple site organization consisting of ambulatory clinics and hospital sitesin [place], [place], [place] and [place]. This disclosure is being madepursuant to the Care Everywhere program and may not contain all information available regarding this patient. Last updated 18.[facility] Allergies Active Allergy Reactions Criticality Noted Date Comments Penicillin G Other High 04/22/2012 Medications * Be aware that medications may not be up to date on this document. Alwaysverify current medications with the patient. betamethasone valerate (VALISONE) 0.1 % creamIndication s:Rash of penis Apply to affected area on penis up to twice daily as needed. 30 days supply. 30 g 1 10/18/2021 Active Active Problems Problem Noted Date Diagnosed Date Skin tag 10/18/2021 Rash of penis 11/13/2020 Contact dermatitis 08/10/2012 Family History Medical History Relation Name Comments None Known Brother None Known Father None Known Maternal Aunt None Known Maternal Grandfather None Known Maternal Grandmother None Known Maternal Uncle None Known Mother None Known Other None Known Paternal Aunt None Known Paternal Grandfather None Known Paternal Grandmother None Known Paternal Uncle None Known Sister Asthma Neg Hx CVA Neg Hx Cancer - Breast Neg Hx Cancer - Other Neg Hx Cancer - Skin, Melanoma Neg Hx Cancer - Skin, Non Melanoma Neg Hx Eczema Neg Hx Hemophilia Neg Hx Psoriasis Neg Hx Relation Name Status Comments Brother Father Maternal Aunt Maternal Grandfather Maternal Grandmother Maternal Uncle Mother Other Paternal Aunt Paternal Grandfather Paternal Grandmother Paternal Uncle Sister Social History Tobacco Use Types Packs/Day Years Used Date Smoking Tobacco: Never Smokeless Tobacco: Never Alcohol Use Standard Drinks/Week Comments Never 0 (1 standard drink = 0.6 oz pur e alcohol) AUDIT-C Answer Date Recorded Q1: How often do you have a drink containing alc ohol? Never 05/11/2020 Average Number of Drinks Not on file 020 Frequency of Binge Drinking Not on file 04/14 Sex and Gender Information Value Date Recorded Sex Assigned at Not on file Legal Sex Male 1:48 PM CDT Gender Identity Not on file Sexual Orientation Not on file Last Filed Vital Signs Vital Sign Reading Time Taken Comments Blood Pressure 129/79 01/08/2021 2:58 PM CDT Pulse 72 01/08/2021 2:58 PM CDT Temperature 36.8 C (98.2 F) 05/11/2020 2:53 PM CDT Respiratory Rate 18 05/11/2020 2:53 PM CDT Oxygen Saturation 100% 05/11/2020 2:53 PM CDT Inhaled Oxygen Concentration - - Weight 63.5 kg (140 lb) 01/08/2021 2:58 PM CDT Height 180.3 cm (5' 11) 01/08/2021 2:58 PM CDT Body Mass Index 19.53 01/08/2021 2:58 PM CDT Plan of Treatment Health Maintenance Due Date Last Done Comments COLOGUARD (AGES 45-75) - COL ON CA SCREENING 1961 COLON MONITORING 1961 COLONOSCOPY - COLON CA SCREENING 1961 CT COLONOGRAPHY - COLON CA SCREENING 1961 Colorectal Cancer Screening 1961 FIT - COLON CA SCREENING 1961 FLEX SIG - COLON CA SCREENING 1961 LIPID TESTING 1961 HIV SCREENING 1976 HEPATITIS C SCREENING 11/03/1979 DTAP/TDAP/TD VACCINES (1 - Tdap) 1980 PNEUMOCOCCAL VACCINE 50+ (1 of 1 - PCV) 11/08/2011 ZOSTER VACCINE (1 of 2) 11/08/2011 DEPRESSION SCREENING 07/13/2024 COVID-19 VACCINE (2023-2 5 season) 2025 INFLUENZA VACCINE (#1) 2025 Respiratory Syncytial Virus (RSV) Vaccine Pt: or over 60 yrs (1 - 1-dose 75+ series) 2036 HEPATITIS B VACCINE Aged Out No longe r eligible based on patient's age to complete this topic HIB VACCINE Aged Out No longer eligi ble based on patient's age to complete this topic HPV VACCINE Aged Out No longer eligi ble based on patient's age to complete this topic MENINGOCOCCAL (Group B) VACC INE SHARED DECISION-MAKING Aged Out No longer eligibl e based on patient's age to complete this topic MENINGOCOCCAL GROUPS A/C/Y/W VACCINE Aged Out No longer eligible b ased on patient's age to complete this topic Insurance [employer] [facility] Care Teams Concrete Batching Plant Operator Relationship Specialty Start Date End Date Yoseph Newsome MD PCP - General 04/24/20
--- OUTSIDE RECORDS SUMMARY | 2025-05-23 08:05 | XMS_ITS | Encounter Summary ---
Author Organization [facility] Address [address] [place] [address] Phone Care Team Providers Care Bareback Rider Name Role Phone Yoseph Newsome Primary Care Provider [phone] Agustin Tsai MD Unavailable [phone] Encounter Details Date Type Department Care Team (Late st Contact Info) Description 04/18/2024 Telephone [facility] [address] [place] [phone] Agustin Tsai MD [address] [address] Social History Tobacco Use Types Packs/Day Years Used Date Smoking Tobacco: Never Smokeless Tobacco: Never Alcohol Use Standard Drinks/Week Comments Never 0 (1 standard drink = 0.6 oz pur e alcohol) Sex and Gender Information Value Date Recorded Sex Assigned at Not on file 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 * Telephone Encounter - Rosie Venegas - 04/29/2024 2:37 PM CDT Left message for pt to call back. * Telephone Encounter - Rosie Venegas - 04/26/2024 8:34 AM CDT Message left for pt to call back. * Telephone Encounter - Rosie Venegas - 04/19/2024 9:56 AM CDT Spoke to shalonda at pcp, pts last psa was 1.60 which was on 02-27-23; Pt hasn't made a follow up appt with PCP. Please advise * Telephone Encounter - Agustin Tsai MD - 04/18/2024 9:24 AM CDT Can you please make sure pt has a PSA done via PMD documented in this encounter Plan of Treatment Scheduled Orders Name Type Priority Associated Diagnoses Orde r Schedule PSA SCREEN Lab Routine Encounter for screening prostate specific antigen (PSA) measurement Expected: 04/26/2024, Expires: 10/25/2024 documented as of this encounter Visit Diagnoses Diagnosis Encounter for screening prostate specific antigen (PSA) measurement- Primary documented in this encounter Care Teams Bareback Rider Relationship Specialty Start Date End Date Yoseph Newsome [address] [place] [address] PCP - General Family Medicine 04/14/24 Agustin Tsai MD [address] [address] Consulting Physician Urology 04/15/24 documented as of this encounter
--- NOTE | 2025-06-19 18:18 | WPDSLEEPSTUD ---
Sleep Study Date of Study: 05/23/25 Ordering Provider: Yoseph Newsome MD Interpreting Physician: Gertrude Wright MD Sleep Study Type: Polysomnogram Height: 1.8 m Weight: 62.596 kg Body Mass Index: 19.2 Neck Circumference (inches): 14 [place]: 13 Reason for Sleep Study Hypersomnolence, restless sleep, poor quality sleep Sleep History Srinivasa Villarreal is a 64-year-old man with poor quality sleep. He rarely awakens from sleep feeling short of breath. He rarely wakes at night with heartburn, belching or coughing.??He occasional snores, however never snores loudly enough that others complain. He rarely has trouble sleeping when he has a cold. He never wakes up gasping for breath during the night. He never has breathing problems at night observed by others. He frequently sweats excessively at night. He occasionally notices his heart pounding or beating irregularly during the night. He frequently falls asleep during the day. He frequently falls asleep involuntarily, and frequently falls asleep while driving. He never experiences loss of muscle tone with strong emotion. He frequently has daytime difficulty at work due to excessive sleepiness. He rarely feels paralyzed on waking or falling asleep. He occasionally experiences vivid dreams upon waking or falling asleep. He never feels afraid of going to sleep. He rarely has nightmares. He frequently recalls his dreams. He frequently has thoughts racing through his mind. He occasionally feels sad or depressed. He occasionally feels anxiety. He occasionally notices parts of his body jerk. He rarely kicks during the night. He frequently feels crawling or aching feelings in his legs. He constantly feels leg pain at night. He never has morning jaw pain, never grinds his teeth at night. He frequently feels bothered by pain during the day, frequently awakened by pain during the night. He rarely wakes feeling sore or achy. He rarely awakens with pain in his neck, spine, or joints. Normal bedtime is between 10:00 p.m. and 10:30 p.m., falling asleep within 2 minutes, waking multiple times at night to urinate. Once he is awake at night, he may not be able to return to sleep for several hours. Wake time is 4:40 a.m.. He typically gets between 6 and 7 hours of sleep per night. On weekends, bedtime is later, between 11:00 p.m. and 12 midnight, and he wakes between 9:00 a.m. and 10:00 a.m. He takes naps in the day, and he may feel refreshed after short 10-15 minute nap. He is usually drowsy for 1 hour after waking. He feels better in the morning compared to other times of day. Habits:??Tobacco: Never Caffeine: 1 cup in the morning Alcohol: none Recreational substances: none [facility] Past Medical History Medical History Thalassemia Benign positional vertigo Surgical History Surgical History History of removal of cyst left testicle Family History Family History Other Cancer Social History Social History Smoking status: Never smoker Alcohol intake: never Substance use: never Current Housing: Decline to Answer Concerned About Future Housing: Decline to Answer Difficulty Paying Gas/Electric Bills: Decline to Answer Difficulty Paying for Meds: Decline to Answer Currently Unemployed: Decline to Answer Education: Decline to Answer Difficulty w/ Childcare or Family Care: Decline to Answer Medications Home Medications ?Medication ?Instructions ?Recorded ?Confirmed ?Type No Home Medications 03/17/24 03/17/24 History Sleep Procedure A full night polysomnogram using the [employer] multi-channel system recorded the standard physiologic parameters including EEG, EOG, submentalis EMG, anterior tibialis EMG, EKG, body position, nasal and oral airflow using nasal pressure sensor and thermistor. Respiratory parameters of chest and abdominal movements were recorded with Respiratory Inductance Plethysmography belts. Oxygen saturation was recorded by pulse oximetry. Video monitoring was also performed. Sleep stages, periodic limb movements, and EEG arousals were scored in 30 second epochs according to the criteria of the AASM Scoring Manual. The Apnea-Hypopnea Index was calculated using CMS guidelines for definition of hypopnea while scoring respiratory events. Sleep Architecture The total recording time was 467.3 minutes. The total sleep time was 392.5 minutes. Sleep latency was 2.9 minutes. REM latency was 77.5 minutes. Sleep efficiency was 84.0%. The patient had 28 awakenings for an awakening index of 4.3. Wake after sleep onset time was 72.0 minutes. The patient spent 37.0 minutes, 9.4% of total sleep time in Stage N1. The patient spent 256.5 minutes, 65.4% in Stage N2. The patient spent 7.5 minutes, 1.9% in Stage N3. The patient spent 91.5 minutes, 23.3% in Stage REM sleep. Respiratory Analysis The patient had 6 hypopneas, 7 obstructive apneas, 3 mixed apneas, and 3 central apneas for an overall Apnea Hypopnea Index of 2.9. The REM Apnea Hypopnea Index was 4.6. The NREM Apnea Hypopnea Index was 2.8. The patient had a Central Apnea Hypopnea Index of 0.5. There were no Respiratory Effort Related Arousals. The Respiratory Disturbance Index is 4.0 events per hour. There was no evidence of Presley-Liriano Respirations. Arousals There were 216 total arousals for an arousal index of 33.0. There were 41 spontaneous arousals for an index of 6.3. There were 14 arousals due to respiratory events for an index of 2.1. There were 113 arousals due to periodic limb movements for an index of 17.3. There were 49 arousals due to isolated limb movements for an index of 7.5. Periodic Limb Movements The patient had 88 isolated limb movements with an index of 13.5. The patient had 265 periodic limb movements with an index of 40.5. Patient had a total of 353 limb movements with a total limb movement index of 54.0. Oximetry Data The patient had an average oxygen saturation of 95.9% in sleep with a minimum oxygen saturation of 90% and a maximum oxygen saturation of 98%. The patient had 11 oxygen desaturations that were 4% or greater resulting in an Oxygen Desaturation Index of 1.7. The patient spent no time with an oxygen saturation below 88%. Snoring Profile Snoring was mild. Cardiac Profile The EKG showed normal sinus rhythm, average pulse rate of 77 bpm with a minimum pulse of rate of 61 bpm and a maximum pulse rate of 100 bpm. No arrhythmias noted. EEG Profile Unremarkable, no evidence of seizures. Assessment and Plan Assessment and Plan (1) PLMD (periodic limb movement disorder): Code(s): G47.61 - Periodic limb movement disorder Status: Acute Assessment and Plan: This basic nocturnal polysomnogram on 05/23/2025 does not show sleep disordered breathing. The overall apnea-hypopnea index is 2.9 with a minimum saturation of 90% and mild snoring. The patient had an elevated number of limb movements. His periodic limb movement arousal index is 17.3, elevated, and his total periodic limb movement index is 40.5. This is significantly elevated. His total limb movement index is 54. Normal is 15 or below. His sleep questionnaire indicates that he has frequent problems with uncomfortable feelings in his legs. He does not perceive kicking often at night. His sleep study shows that he does in fact kick frequently and has arousals during sleep however he is not aware of the arousals. The brain has to be awake for 2 minutes before an individual realizes he or she is awake. [place] period of wake are not remembered. He had short arousals which disrupted his sleep. These constant interruptions cause significant daytime dysfunction. Ferritin level is indicated to exclude iron deficiency anemia as a contributing factor. Ferritin should be 75 ng/mL or greater. If ferritin is below this, iron supplementation should be given to achieve ferritin of 75 ng/mL. There are nonpharmacologic methods to treat limb movements including daily exercise, stretching calf muscles before bed, avoiding excessive amounts of caffeine and alcohol, vitamin B supplementation, magnesium lotion massaged into legs before bed, and use of a weighted blanket. Pharmacologic therapy is very effective for restless legs syndrome and limb movements during sleep and may include [id number] voltage-gated calcium channel ligands such as gabapentin which is preferable to dopaminergic agents which can have augmentation. Data The data obtained during this sleep study is adequate for interpretation. Certification This sleep study has been reviewed by a board certified sleep medicine physician.
[2025-06-21 19:51] VITALS: BMI 19.2
== END 2025-05-24 06:06 | disposition home or self-care (01) ==
PROVIDERS: PCP Emergency Medicine; Visit Provider Emergency Medicine
DX: G47.33 Obstructive sleep apnea (adult) (pediatric) (principal)
CPT/HCPCS: 95810